=== PATIENT | male | born 1965 | race Caucasian/White ===

== ENCOUNTER 2025-04-18 03:10 | Emergency (ER) | payer SELFPAY ==
[2025-04-18 03:11] VITALS: BP 153/94; BMI 24.8
[2025-04-18 03:15] VITALS: BP 153/94
[2025-04-18 04:00] VITALS: BP 125/92
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
[2025-04-18 05:00] VITALS: BP 144/92
[2025-04-18 06:00] VITALS: BP 147/99
[2025-04-18 06:54] VITALS: BP 142/92
--- NOTE | 2025-04-18 07:09 | EDRN ---
previous security shift supervisor ISELA Stallings was going to discharge the pt to home however the pt states that he can't go home because he can't get a ride
--- NOTE | 2025-04-18 07:11 | EDRN ---
Dr. Anna notified that the pt was brought back to ED Bed #11 by triage nurse
--- NOTE | 2025-04-18 07:34 | EDRN ---
Dr. Anna currently at the pts bedside
--- NOTE | 2025-04-18 08:40 | EDRN ---
crisis currently at the pts bedside
[2025-04-18] MEDS: TAMBOCOR 100 MG PO (10:42)
[2025-04-18] MEDS: BUSPAR 15 MG PO (10:42)
== END 2025-04-18 10:51 | disposition home or self-care (01) ==
LOC: EMR 03:10
PROVIDERS: EMERGENCY PHYSICIAN Student in an Organized Health Care Education/Training Program
DX: R00.2 Palpitations (principal); T50.905A Adverse effect of unspecified drugs, medicaments and biological substances, initial encounter; F41.9 Anxiety disorder, unspecified; G20.A1 Parkinson's disease without dyskinesia, without mention of fluctuations; F42.9 Obsessive-compulsive disorder, unspecified; I48.91 Unspecified atrial fibrillation
CPT/HCPCS: 99283; 93005